=== PATIENT | female | born 1965 | race Caucasian/White ===

== ENCOUNTER 2018-03-05 17:25 | Emergency (ER) | payer BC, SELFPAY ==
[2018-03-05 17:48] VITALS: BP 158/89; PULSE 90; RESP 16; TEMP 36.8; O2SAT 97; BMI 39.4
--- NOTE | 2018-03-05 17:55 | DI.RAD.S_ITS ---
PROCEDURE: XR KNEE LT 3V INDICATIONS: knee injury TECHNIQUE: 3 views of the knee were acquired. COMPARISON: None. FINDINGS: Bones: No fractures or dislocations. No suspicious bony lesions. Soft tissues: Mild joint effusion. No suspicious soft tissue calcifications. IMPRESSION: Mild effusion. No visualized acute fracture or dislocation. However, if clinical concern and/or pain persist, short interval imaging followup in 7-10 days is recommended, as occult injury cannot be definitively excluded. Dictated by: Faina Nash M.D. on 03/05/2018 at 18:35 Approved by: Faina Nash M.D. on 03/05/2018 at 18:36
--- NOTE | 2018-03-05 18:07 | ED.LOWEXIN ---
HPI - Extremity Injury (Lower) General Chief Complaint: Extremity Injury, Lower Stated Complaint: TWISTED LEFT LEG/KNEE Time Seen by Provider: 03/05/18 18:01 Source: patient Mode of arrival: ambulatory Limitations: no limitations History of Present Illness HPI Narrative: Patient is a 52-year-old female who presents with left knee pain. She flew on an air pain from [place] to [place] she stood up and twisted behind her and felt her knee pop. She then proceeded to travel from [place] to [place] and a direct flight she says her calf hurts when she walks. She feels her knee popping. She denies numbness or tingling. No history of DVTs. No chest pain or shortness of breath. MD complaint: knee injury Onset (ago): hour(s) Related Data Allergies Allergy/AdvReac Type Severity Reaction Status Date / Time No Known Drug Allergies Allergy Verified 03/05/18 17:52 Review of Systems Review of Systems All systems reviewed & are unremarkable except as noted in HPI and below Constitutional Denies chills, Denies fever(s), Denies lethargy and Denies weakness Cardiovascular Denies chest pain, Denies irregular heart rhythm, Denies lightheadedness, Denies palpitations, Denies dyspnea, Denies dyspnea on exertion and Denies orthopnea Respiratory Denies cough, Denies dyspnea, Denies dyspnea on exertion and Denies wheezing Gastrointestinal Gastrointestinal: Denies abdominal pain, Denies nausea and Denies vomiting Musculoskeletal Reports as per HPI and Denies tingling Integumentary/Breasts Denies pruritus, Denies erythema, Denies rash and Denies wounds Neurologic Denies tingling, Denies paresthesias and Denies weakness Endocrine Denies palpitations Allergic/Immunologic Denies wheezing [facility] Social History Smoking Status: Never smoker Exam Initial Vital Signs Initial Vital Signs: Vital Signs Temperature 98.2 F 03/05/18 17:48 Pulse Rate 90 03/05/18 17:48 Respiratory Rate 16 03/05/18 17:48 Blood Pressure 158/89 H 03/05/18 17:48 Pulse Oximetry 97 03/05/18 17:48 GENERAL: Overweight female alert oriented no acute distress HEENT: Head atraumatic,EOMI, pupils reactive, CARDIOVASCULAR: Regular rate and rhythm without murmurs, rubs or gallops. RESPIRATORY: Breath sounds equal bilaterally, no wheezes rales or rhonchi. ABDOMEN: Soft, nontender. Normoactive bowel sounds all 4 quadrants. No guarding or rebound. EXTREMITIES: Normal range of motion, no clubbing or edema. Neurovascularly intact -left leg slightly swollen negative anterior-posterior drawer. Neurovascularly intact able flex and extend at knee. Minimal calf pain NEUROLOGICAL: Alert and oriented x4.Normal gait and speech. SKIN: Warm, dry, no laceration, no petechiae, no rashes or lesions. Course Orders Ordered: ED Orders 03/05/18 17:55 XR knee LT 3V Stat 03/05/18 18:06 US perip venous low extrem lt Stat Discontinued Medications Ibuprofen (Advil) 800 mg PO NOW ONE Stop: 03/05/18 18:07 Last Admin: 03/05/18 18:24 Dose: 800 mg Vital Signs - 8 hr 03/05/18 17:48 Temperature 98.2 F Pulse Rate 90 Respiratory Rate 16 Blood Pressure 158/89 H Pulse Oximetry 97 MDM - Extremity Injury (Lower) Imaging Data Venous US: Radiologist's impression: PROCEDURE: US PERIP VENOUS LOW EXTREM LT INDICATIONS: PAIN POST FLIGHT TECHNIQUE: Real-time imaging, as well as color and pulse Doppler interrogation, were performed of the lower extremity deep veins from the inguinal ligament to the popliteal fossa. COMPARISON: None. FINDINGS: The deep veins are normally compressible, and free of intraluminal thrombus. Color and pulse Doppler demonstrate normal phasic intraluminal flow. There is normal augmentation response to distal compression maneuver. IMPRESSION: No visualized deep venous thrombosis. Dictated by: Faina Nash M.D. on 03/05/2018 at 19:32 Left knee XR: Radiologist's impression: PROCEDURE: XR KNEE LT 3V INDICATIONS: knee injury TECHNIQUE: 3 views of the knee were acquired. COMPARISON: None. FINDINGS: Bones: No fractures or dislocations. No suspicious bony lesions. Soft tissues: Mild joint effusion. No suspicious soft tissue calcifications. IMPRESSION: Mild effusion. No visualized acute fracture or dislocation. However, if clinical concern and/or pain persist, short interval imaging followup in 7-10 days is recommended, as occult injury cannot be definitively excluded. Dictated by: Faina Nash M.D. on 03/05/2018 at 18:35 MDM Narrative Medical decision making narrative: Patient is given a knee brace. We have discussed with her she may need repeat imaging if she continues to have pain and swelling. Discharge Plan Departure Patient Disposition: Home Clinical Impression: Left knee sprain Instructions: DI for Knee Sprain Activity Restrictions/Additional Instructions: *You have been diagnosed with left knee sprain *What to do: Were knee brace while active, tried to get up a couple times during long flights to help prevent blood clots, if still having pain he may require MRI in 2-3 weeks, may also require repeat ultrasound for possible blood clot at this time x-ray and ultrasound are negative. *Continue to take medications as directed Ibuprofen/Motrin 600 -800 mg every 6 to 8 hr if needed for pain or swelling *Follow up with your primary care provider in 2-3 days *Return to ER if you should have swelling, redness, numbness,, weakness or any new, worsening or concerning symptoms
[2018-03-05] MEDS: IBUPROFEN 400 MG TABLET 800 MG PO (18:24)
[2018-03-05 19:49] VITALS: BP 130/73; PULSE 79; RESP 15; TEMP 36; O2SAT 96
[2018-03-05 19:56] VITALS: BP 130/73; PULSE 79; RESP 15; TEMP 36; O2SAT 96
== END 2018-03-05 20:02 | disposition home or self-care (01) ==
PROVIDERS: Emergency Provider Emergency Medicine
DX: S83.92XA Sprain of unspecified site of left knee, initial encounter (principal); X50.1XXA Overexertion from prolonged static or awkward postures, initial encounter
CPT/HCPCS: 29530; 73562; 93971; 99283; 99284